=== PATIENT | female | born 1940 | race Caucasian/White ===

== ENCOUNTER 2019-08-01 11:11 | Emergency (ER) | payer MEDICARE, OTHER ==
--- NOTE | 2019-08-01 12:11 | ED ---
Skin Complaint - HPI Summary HPI Summary: This pt is a 79 y/o female presenting to [facility] c/o blisters on right hand s/p using bleach on 07/26/19. Pt states she was using bleach while wearing gloves on 07/26/19 but her gloves had a hole and bleach made contact with her right hand. Pt states on 07/30/19 she noticed fluid filled blisters appeared on her right fingers. She describes her blisters as pruritic. She also notes she has some lesions on her right side of her face which she attributes came about after putting her right hand next to her face while sleeping. Pt has been taking Benadryl with some relief of itchiness. Pt reports it is possible she was in contact with poison nancy as she had it last year and used the same gloves. PMHx: lymphoma 6 years ago. Allergic to shellfish and penicillin. - History of Current Complaint Chief Complaint: EDRashSkinAbscess Time Seen by Provider: 08/01/19 11:53 Stated Complaint: EXPOSURE TO BLEACH ON RT HAND PER PT Hx Obtained From: Patient Onset/Duration: Started Days Ago, Still Present Skin Exposure Onset/Duration: Days Ago Timing: Lasting Days Current Severity: Moderate Pain Intensity: 4 Pain Scale Used: 0-10 Numeric Skin Location: Face - right sided, Hand - Right Character: Pruritus Aggravating Symptom(s): Nothing Alleviating Symptom(s): Nothing Associated Signs & Symptoms: Negative Related History: Other: - s/p using bleach - Allergy/Home Medications Allergies/Adverse Reactions: Allergies Allergy/AdvReac Type Severity Reaction Status Date / Time Penicillins Allergy See Comment Verified 08/01/19 11:19 shellfish derived Allergy Itching Verified 08/01/19 11:19 PMH/Surg Hx/FS Hx/Imm Hx Endocrine/Hematology History: Denies: Hx Diabetes Cardiovascular History: Denies: Hx Hypertension - Cancer History Cancer Type, Location and Year: Lymphoma Hx Chemotherapy: Yes - BREAST LYMPHOMA Hx Radiation Therapy: Yes - BREAST LYMPHOMA - Surgical History Surgical History: Yes Surgery Procedure, Year, and Place: Hysterectomy. Splenectomy Infectious Disease History: No Infectious Disease History: Denies: Traveled Outside the [place] in Last 30 Days - Family History Known Family History: Negative: Hypertension, Diabetes - Social History Alcohol Use: None Substance Use Type: Reports: None Smoking Status (MU): Never Smoked Tobacco Review of Systems Negative: Fever, Chills Skin: Other - POSITIVE: blisters in right hand All Other Systems Reviewed And Are Negative: Yes Physical Exam - Summary Physical Exam Summary: General: Well appearing, no distress Cardiovascular: Skin is well perfused Pulmonary: No respiratory distress, no tachypnea Abdomen: Non-distended Skin: On the right hand between the 4th and 3rd digits patient has 3 bullous lesions. Several small plaques to the right forearm as well as the right lower lip and right chin. MSK: no edema Psych: Normal affect Neuro: A&Ox3 Triage Information Reviewed: Yes Vital Signs On Initial Exam: Initial Vitals Temp Pulse Resp BP Pulse Ox 97.8 F 101 16 110/67 97 08/01/19 11:14 08/01/19 11:14 08/01/19 11:14 08/01/19 11:14 08/01/19 11:14 Vital Signs Reviewed: Yes Diagnostics - Vital Signs Vital Signs Temp Pulse Resp BP Pulse Ox 08/01/19 11:14 97.8 F 101 16 110/67 97 - Laboratory Lab Statement: Any lab studies that have been ordered have been reviewed, and results considered in the medical decision making process. Course/Dx - Course Course Of Treatment: 79 y/o F presents with blisters to right hand. Patient concerned about bleach exposure however states she was also exposed to poison nancy. Exam with 3 bullous lesions to the right interweb space of the third and fourth finger, as well as plaques to the right forearm, and right face consistent with poison nancy. Discussed with patient that if she has worsening of her symptoms, fevers, purulent drainage to return for antibiotics. She understands. - Diagnoses Provider Diagnoses: Poison nancy Discharge ED - Sign-Out/Discharge Documenting (check all that apply): Patient Departure - Discharge home Patient Received Moderate/Deep Sedation with Procedure: No - Discharge Plan Condition: Stable Disposition: HOME Patient Education Materials: Poison Nancy (ED) Referrals: Bertha Moses MD [Primary Care Provider] - Additional Instructions: Please keep the wound clean and dry. You can take benadryl for itching. Please wash all clothes and materials that come in contact with your wound. Please return for worsening pain, fevers, spreading of the wound, pain in your hand or inability to move your fingers. Please follow up for a wound check with your primary care doctor in the next 2-3 days. - Billing Disposition and Condition Condition: STABLE Disposition: Home - Attestation Statements Document Initiated by John: Yes Documenting Scribe: Penny Davies Provider For Whom John is Documenting (Include Credential): Zenia Villa MD Scribe Attestation: Penny Szymanski, scribed for Zenia Villa MD on 08/01/19 at 1222. Scribe Documentation Reviewed: Yes Provider Attestation: The documentation as recorded by the Penny price accurately reflects the service I personally performed and the decisions made by me, Zenia Villa MD Status of Scribe Document: Viewed
[2019-08-01 12:36] VITALS: BP 00/00
== END 2019-08-01 12:30 | disposition home or self-care (01) ==
LOC: ED 11:11
DX: L23.7 Allergic contact dermatitis due to plants, except food (principal); Z88.0 Allergy status to penicillin
CPT/HCPCS: 99281